=== PATIENT | female | born 1965 | race Two or more races ===

== ENCOUNTER → 2020-09-12 06:00 | Outpatient (CLI) | payer OTHER ==
[~2020-09-12 06:00] MED LIST: AMLODIPINE-OLM1 EACH PO; COZAAR100 MG PO; CRESTOR40 MG PO
== END | disposition home or self-care (01) ==
LOC: LAB 06:00 → ADM 07:00 → CIR.AMB 09-19 07:00 → EDSTATUS 10-17 07:00
PROVIDERS: ATTEND Orthopaedic Surgery Hand Surgery
DX: S67.02XA Crushing injury of left thumb, initial encounter (principal); U07.1 COVID-19

== ENCOUNTER 2020-10-17 06:30 | Day surgery (SDC) | payer OTHER | END 2020-10-17 15:00 | disposition home or self-care (01) | LOC: CIR.AMB 06:30 | PROVIDERS: ATTEND Orthopaedic Surgery Hand Surgery | DX: S67.02XA Crushing injury of left thumb, initial encounter (principal); M86.642 Other chronic osteomyelitis, left hand; Z20.822 Contact with and (suspected) exposure to COVID-19 ==